=== PATIENT | male | born 1970 | race Caucasian/White ===

== ENCOUNTER 2023-09-28 12:04 | Emergency (ER) | payer OTHER, SELFPAY ==
[2023-09-28 12:06] VITALS: BP 123/86
[2023-09-28] MEDS: KEFLEX 500 MG PO (14:14)
--- NOTE | 2023-09-28 14:25 | ED.GENMED ---
History of Present Illness
General
Chief Complaint: Skin Problem
Source: patient
Exam Limitations: none
Time Seen by Provider: 09/28/23 13:33
Nursing documentation reviewed up to this point in time: agreed with
History of Present Illness
History of Present Illness:
53-year-old male past medical history of hypertension hyperlipidemia, GERD presenting to the emergency department today with concerns of redness and swelling to the mid back after what he believes was being bit by a bug on Monday this week, 4 days
ago. Saw his primary care doctor yesterday was started on Bactrim and has taken 3 total doses at this point has noticed a slight increase in redness. Denies any systemic symptoms fever. He claims that the discomfort to the area has decreased.
Past History
Past History
ED Past Medical History: GERD (takes Omeprazole), HTN (takes Lisinopril) and Hypercholesterolemia (takes Atorvastatin)
ED Past Surgical History: Tonsilectomy
Social History
Tobacco: Non-smoker
Alcohol: Occasional
Personal: Single
Living: with family
Employment: Employed (building maintenance, EMT order department supervisor)
Review of Systems
Review of Systems
Allergies reviewed?: Yes
All Other Systems: ROS reviewed and negative except as documented in HPI and ROS
Phy Exam
Physical Exam
Physical Exam:
GENERAL: Alert , in no apparent distress
EYE: pupils equal and reactive
NECK: Supple, no significant adenopathy.
ENT: o/p clr, mmm.
CARDIAC: Regular rate and rhythm .
LUNGS: Clear breath sounds bilaterally, no acute respiratory distress, no wheezes/rales/rhonchi
ABDOMEN: Soft, without focal tenderness, no r/g, no cvat
NEUROLOGICAL: Alert and oriented, no focal neuro deficits
SKIN: Area of roughly 10 cm in diameter redness and warmth no fluctuance or induration vague redness without significant tenderness to the area to the right mid back warm and dry, skin intact.
MUSCULOSKELETAL: No edema, well perfused.
PSYCH: Normal and appropriate interaction.
Course
Orders/Labs/Results
Orders:
Orders
09/28/23 14:05
Cephalexin Monohydrate [Keflex] 500 mg PO NOW STA
Vital Signs
Initial and Last Documented VS:
Initial Vital Signs
Temp Pulse Resp BP Pulse Ox
98 F 80 18 123/86 97
09/28/23 12:06 09/28/23 12:06 09/28/23 12:09/28/23 12:06 09/28/23 12:06
Last Documented Vital Signs
Temp Pulse Resp BP Pulse Ox
98 F 80 18 123/86 97
09/28/23 12:06 09/28/23 12:06 09/28/23 12:09/28/23 12:06 09/28/23 12:06
MDM/Problems Addressed
MDM/Problems Addressed:
53-year-old male presenting to the emergency department today with concerns of right mid back redness swelling he thinks that the redness is slightly increased in size and has gone out of the margins where there was previously a line drawn around
the redness yesterday. He claims that the symptoms, swelling and tenderness have improved no systemic symptoms no fever normal vital signs here. The area of redness that has extended past the pen marking is very vague and nontender. Likely does
not represent significant worsening of cellulitis. Patient was started on Keflex as well for double coverage but otherwise appears stable for outpatient management with strict return precautions were given. Patient has only been on treatment for
roughly 24 hours and likely will need more time to tell if this is going to be improving as an outpatient or not. No specific risk factors for infection. Patient is not diabetic no immunosuppressive medications.
*Critical Care Note
Total Time (30-74mins, 75-104mins- exclusive of procedures): Not Applicable
ED Attending Note
-
Portions of this chart may have been created with voice recognition software.� Occasional wrong word or��sound alike� substitutions may have occurred due to the inherent limitations of voice recognition software.
Discharge Plan
Departure
Patient Disposition: Home (Routine Discharge)
Date of Disposition: 09/28/23
Time of Disposition: 14:28
Patient with high blood pressure during this ER visit?: No
Condition: Good
Covid-19: Not Applicable
Discharge Problem:
Cellulitis
Instructions: Cellulitis (Skin Infection), Adult (DC)
Prescriptions:
New
cephalexin 500 mg capsule
500 mg PO QID 7 Days Qty: 28 0RF
No Action
lisinopril 20 MG tablet
20 mg PO DAILY
omeprazole 20 MG tablet,disintegrat, delay rel
20 mg PO DAILY
Referrals:
Michael Franco MD [Family Provider] -
Activity Restrictions/Additional Instructions:
You came to the emergency department today with concerns of a rash to the back. This is likely cellulitis. Please take Keflex 4 times daily as well as for additional antibiotic. Please follow closely with a primary care doctor. Return to the
emergency department for any worsening, new or concerning symptoms.
Interventions
Interventions:
*Risk Screen - Suicide Last Done: 09/28/23 12:06
*General Assessment Last Done: 09/28/23 12:06
*Neglect/Abuse Screening Last Done: 09/28/23 12:06
ED- Fall Risk Assessment Last Done: 09/28/23 12:38
*ED COVID-19 Vaccine History Last Done: 09/28/23 12:38
ED-Skin Assessment Last Done: 09/28/23 12:38
Discharge Date and Time
Print Language: HUNGARIAN
== END 2023-09-28 14:57 | disposition home or self-care (01) ==
LOC: EMR 12:04
PROVIDERS: EMERGENCY PHYSICIAN Emergency Medicine; FAMILY PHYSICIAN Family Medicine
DX: L03.312 Cellulitis of back [any part except buttock and flank] (principal); I10 Essential (primary) hypertension; E78.00 Pure hypercholesterolemia, unspecified; K21.9 Gastro-esophageal reflux disease without esophagitis; Z88.0 Allergy status to penicillin
CPT/HCPCS: 99283

== ENCOUNTER 2025-02-27 06:15 | Day surgery (SDC) | payer OTHER, SELFPAY | END 2025-02-27 12:05 | disposition home or self-care (01) | LOC: GI 06:15 | PROVIDERS: ATTENDING PHYSICIAN Internal Medicine Gastroenterology | DX: Z12.11 Encounter for screening for malignant neoplasm of colon (principal); K64.8 Other hemorrhoids; K57.30 Diverticulosis of large intestine without perforation or abscess without bleeding; D12.4 Benign neoplasm of descending colon | CPT/HCPCS: 45380; 88305 ==